=== PATIENT | male | born 1955 | race Hispanic/Latino ===

== ENCOUNTER → 2019-05-29 | Outpatient (CLI) | payer OTHER ==
--- NOTE | 2019-05-29 21:18 | Diagnostic Imaging Report ---
EXAM: Scrotal Ultrasound with Duplex INDICATION: CHRONIC PAIN COMPARISON: None TECHNIQUE: Transverse and longitudinal images were obtained of the scrotum with grayscale imaging, color Doppler and spectral waveform analysis. FINDINGS: Right testis: Size: 4.3 x 1.8 x 2.9 cm, normal in size. Echogenicity: Normal Mass/Cysts: None Left testis: Size: 4.3 x 2.1 cm, normal in size. Echogenicity: Normal Mass/Cysts: None Epididymis: Appearance: Normal in size without increased vascularity. Mass/Cysts: None Extratesticular: Masses: None Hydrocele: Small simple left Varicocele: Mild bilateral Doppler: Normal arterial flow to both testes and symmetrical flow on color Doppler evaluation is seen. No evidence of testicular torsion. Suspicion for small bilateral fat-containing inguinal hernias without evidence of a loop of bowel in the suspected hernia sites. IMPRESSION: 1. No evidence of testicular torsion. 2. Mild bilateral varicocele and trace left simple hydrocele. 3. Suspicion for small bilateral fat-containing inguinal hernias. Signed by: Axel Bucio DO on 05/29/2019 9:15 PM
== END ==
LOC: US 17:12
PROVIDERS: ATTEND Urology
DX: G89.29 Other chronic pain (principal)
CPT/HCPCS: 76870; 93976